=== PATIENT | female | born 1965 | race Caucasian/White ===

== ENCOUNTER → 2023-03-27 10:38 | Outpatient (CLI) | payer OTHER, SELFPAY ==
--- NOTE | 2023-03-27 | DI.ECHO.S_ITS ---
[facility] +---------+ : : [address] : : : : [id number] : : : : Phone: [phone]+ Echocardiogram Report + + :Name: WIL JEONG Study Date: 03/27/2023 Height: 61 in : :[facility] ReadingLocation: Weight: 137 lb : : Gender: Female BSA: 1.6 m2 : :: 1965 Age: 57 yrs BP: 134/78 mmHg: :Reason For Study: RIGHT BREAST CANCER HR: 80 : :Ordering Physician: SHMUEL GUPTAPerformed By: KARYN HERNADEZ : :Referring: SHMUEL GUPTA : + + Interpretation Summary The ejection fraction is estimated to be 55-60%. Left ventricular global longitudinal strain average is -18.6%. There is no significant valvular heart disease. Procedure: A two-dimensional transthoracic echocardiogram with color flow and Doppler was performed. The study quality was technically adequate. There is no prior echocardiogram noted for this patient. The patient was in normal sinus rhythm during the exam. Left Ventricle: The left ventricle is normal in size and wall thickness. Left ventricular systolic function is normal. The ejection fraction is estimated to be 55-60%. Left ventricular global longitudinal strain average is -18.6%. Right Ventricle: The right ventricle is normal in size and function. Atria: Both atria are normal in size. There is no Doppler evidence for an interatrial shunt. Mitral Valve: The mitral valve is normal in structure and function. There is no mitral regurgitation noted. Aortic Valve: The aortic valve is trileaflet. The aortic valve opens well. There is no aortic valve stenosis. No aortic regurgitation is present. Tricuspid Valve: The tricuspid valve is normal in structure and function. There is mild tricuspid regurgitation. The right ventricular systolic pressure is estimated to be at least 29 mmHg based on an estimated right atrial pressure of 3 mm Hg. Pulmonic Valve: The pulmonic valve is normal in structure and function. There is no pulmonic valvular regurgitation. Great Vessels: The aortic root is normal size. The ascending aorta could not be visualized. The IVC is of normal diameter and collapses greater than 50% with a sniff. This suggests a low right atrial pressure of 3 mm Hg. Pericardium/ Pleura There is no pericardial effusion. There is no pleural effusion. MMode/2D Measurements & Calculations LVIDd: 4.3 cm LVOT diam: 1.7 cm LVIDs: 2.7 cm Ao root diam: 2.6 cm FS: 38.7 % IVSd: 0.65 cm LVPWd: 0.92 cm LV velasco. diameter/BSA (cm/m^2): 2.7 LV sys. diameter/BSA (cm/m^2): 1.7 LA A2 area: 16.7 cm2 RA long axis: 4.7 cm LA A4 area: 13.4 cm2 RA area: 13.2 cm2 LA length (vol): 4.8 cm RA vol: 31.3 ml LA vol: 40.0 ml RA : 19.5 ml/m2 LA vol index: 24.9 ml/m2 IVC diam: 1.4 cm TAPSE: 1.9 cm Doppler Measurements & Calculations Ao V2 max: 166.4 cm/sec LVOT Max Luis Alberto: 144.8 cm/sec Ao V2 mean: 91.9 cm/sec LV V1 max P.4 mmHg Ao max P.1 mmHg LV V1 VTI: 28.4 cm Ao mean P.1 mmHg MERRY(I,D): 2.3 cm2 Ao V2 VTI: 25.9 cm MERRY(V,D): 1.9 cm2 sev ratio: 1.1 MERRY indexed to BSA (cm^2/m^2): 1.5 MV E max luis alberto: 85.7 cm/sec TR max luis alberto: 255.0 cm/sec MV A max luis alberto: 90.2 cm/sec TR max P.0 mmHg MV E/A: 0.95 PA V2 max: 130.8 cm/sec Med Peak E' Luis Alberto: 8.4 cm/sec PA V2 mean: 92.8 cm/sec E/E' med: 10.2 PA mean P.8 mmHg Lat Peak E' Luis Alberto: 15.3 cm/sec PA pr(Accel): 29.3 mmHg E/E' lat: 5.6 E/e' average: 7.9 MV dec time: 0.18 sec SV(LVOT): 60.7 ml Reading Physician:02:07 PM
--- NOTE | 2023-03-27 | DI.NM.S_ITS ---
PROCEDURE: NM BONE SCAN WHOLE BODY RADIOPHARMACEUTICAL: 21.3 mCi Tc-99m MDP IV. INDICATIONS: right breast cancer TECHNIQUE: Delayed whole-body scintigrams were obtained approximately 3-4 hours after intravenous injection of radiotracer. Anterior and posterior views were acquired from vertex to feet. Additional left and right oblique views of the chest were obtained. COMPARISON: None. FINDINGS: Multiple regions of increased radiotracer uptake within the bilateral humeri, thoracolumbar spine, pelvis, left femoral head, and multiple bilateral ribs. Kidneys are normally position. IMPRESSION: Severe multifoca bony l metastatic disease. Dictated by: Kanchan Banerjee M.D. on 03/27/2023 at 15:56 Transcribed by: IVON on 03/27/2023 at 15:59 Approved by: Kanchan Banerjee M.D. on 03/27/2023 at 16:31
== END ==
PROVIDERS: Referring Provider Internal Medicine; Visit Provider Internal Medicine
DX: C50.911 Malignant neoplasm of unspecified site of right female breast (principal); C79.51 Secondary malignant neoplasm of bone; I07.1 Rheumatic tricuspid insufficiency
CPT/HCPCS: 78306; 93306; A9503